=== PATIENT | male | born 1985 | race African-American/Black ===

== ENCOUNTER 2018-03-13 16:25 | Emergency (ER) | payer SELFPAY ==
[2018-03-13] MEDS ORDERED: Dexamethasone 4 mg/ml Vial ONE (17:18)
== END 2018-03-13 17:11 | disposition home or self-care (01) ==
LOC: ERS 16:25
DX: J02.0 Streptococcal pharyngitis (principal); I10 Essential (primary) hypertension
CPT/HCPCS: 87430; 99283; J1100

== ENCOUNTER 2018-06-26 11:55 | Emergency (ER) | payer SELFPAY | END 2018-06-26 13:09 | disposition home or self-care (01) | LOC: ERS 11:55 | DX: R20.2 Paresthesia of skin (principal); M54.12 Radiculopathy, cervical region; I10 Essential (primary) hypertension; F31.9 Bipolar disorder, unspecified; F41.9 Anxiety disorder, unspecified; Z79.899 Other long term (current) drug therapy | CPT/HCPCS: 99283 ==

== ENCOUNTER 2020-01-20 21:09 | Emergency (ER) | payer MEDICARE, MEDICAID ==
[2020-01-20] MEDS ORDERED: Adacel (T-DAP) 0.5 ML SYRINGE ONE (21:16)
[2020-01-20] MEDS ORDERED: Lidocaine 1% w/Epinephrine 1:100K 20 ML VIAL ONE (21:16)
--- NOTE | 2020-01-20 21:37 | RAD ---
EXAM: 2 views of the left forearm HISTORY: Forearm laceration COMPARISON: None FINDINGS: There is no evidence of acute fracture or dislocation. Mild soft tissue swelling is seen al klarissa the volar aspect of the wrist. No degenerative changes are seen in the wrist or elbow. No radiopaque foreign body is seen. IMPRESSION: No evidence of acute osseous abnormality.
[2020-01-20] MEDS ORDERED: Bacitracin 1 PK ONE (22:00)
[2020-01-20] MEDS ORDERED: Ibuprofen 800 MG TAB ONE (22:09)
== END 2020-01-20 22:13 | disposition home or self-care (01) ==
LOC: ERS 21:09
DX: S51.812A Laceration without foreign body of left forearm, initial encounter (principal); S11.91XA Laceration without foreign body of unspecified part of neck, initial encounter; I10 Essential (primary) hypertension; F31.9 Bipolar disorder, unspecified; F41.9 Anxiety disorder, unspecified; Z79.899 Other long term (current) drug therapy; X99.1XXA Assault by knife, initial encounter
CPT/HCPCS: 12001; 90471; 90715

== ENCOUNTER 2023-01-17 21:43 | Inpatient (IN) | payer OTHER, MEDICAID ==
[2023-01-17] MEDS ORDERED: Rocuronium Bromide 10 MG/ML (10ML VIAL) ONE (21:57)
[2023-01-17] MEDS ORDERED: Propofol 1,000 MG/100 ML VIAL IV ONE (22:09)
[2023-01-17 22:16] LABS: #Basophils 0.1 thou/uL (0.0-0.2); #Eosinphils 0.6 thou/uL (0.0-0.7); #Monocytes 0.7 thou/uL (0.11-0.59); %Basophils 0.6 % (0.0-1.0); %Eosinophils 5.6 % (0.0-10.0); %Lymphocytes 36.7 % (21.0-51.0); %Monocytes 6.8 % (0.0-10.0); %Neutrophils 50.2 % (42.0-75.0); Hemoglobin 12.6 g/dL (14.0-18.0); Mean Corpuscular HGB CONC 33.5 g/dL (32.0-36.0); Mean Corpuscular Hemoglobin 30.3 pg (27.0-31.0); Mean Corpuscular Volume 90.4 fl (78.0-98.0); Mean Platelet Volume 10.5 fL (7.4-10.4); Platelet Count 305 10x3/uL (130-400); RBC Distribution Width 13.4 % (11.5-14.5); Red Blood Cell (RBC) Count 4.16 mill/uL (4.70-6.10); White Blood Cell (WBC) Count 9.9 10x3/uL (4.8-10.8)
[2023-01-17 22:39] LABS: Actual Bicarbonate (HCO3a) 23.4 mEq/L (22-28); Analyzer IN Cardio ER; Base Excess (BEa) -2.2 mEq/L (-2.0 to +3.0); Calcium, Ionized (arterial) 1.15 mmol/L (1.12-1.30); Hematocrit-ABG 37 % (42.0-52.0); Hemoglobin (Hb) 12.6 g/dL (14.0-18.0); O2 Tension (PaO2), arterial 331.8 mmHg (80.0-100.0); Potassium - ABG Lab 3.42 mmol/L (3.70-5.30); pH, Arterial 7.353 (7.35-7.45)
[2023-01-17 22:42] LABS: Puncture Site RRA
[2023-01-17 22:44] LABS: Acetaminophen Less than 10 mcg/mL (10.0-30.0); Alcohol Less than 10.0 mg/dL (Less than 10); Lipase 27 U/L (8-78); Magnesium 1.8 mg/dL (1.6-2.6); Salicylate Less than 8.0 mg/dL (15.0-30.0)
[2023-01-17 23:22] LABS: Amphetamine Not Detected (NotDetected); Barbiturates Screen Not Detected (NotDetected); Benzodiazepine Screen Detected (NotDetected); Cocaine Metabolite Screen Detected (NotDetected); Methadone Not Detected (NotDetected); Methamphetamine Not Detected (NotDetected); Opiate Screen Detected (NotDetected); Oxycodone Screen Not Detected (NotDetected); Phencyclidine (PCP) Not Detected (NotDetected); THC/Cannabinoid Screen Not Detected (NotDetected); Tricyclic Screen Not Detected (NotDetected)
[2023-01-17 23:29] LABS: Bacteria/HPF None Seen HPF (None Seen); Bilirubin Negative (Negative); Blood, Urine Negative (Negative); CAUTI Indications for Culture Alt mental st,lethar; Clarity Clear (Clear); Glucose, Urine (Dipstick) Normal (Negative); Ketone, Urine Negative (Negative); Leukocyte Negative Leu/uL (Negative); Nitrite Negative (Negative); Protein, Urine (Dipstick) 20 mg/dL (Neg-Trace); RBC/HPF 0-3 HPF (0-3); Specific Gravity, Urine 1.024 (1.002-1.036); Squamous Epithelial None Seen HPF (0-3); Urobilinogen Normal mg/dL (Less than 2); WBC/HPF 0-3 HPF (0-3); pH, Urine 5.5 (5.0-9.0)
[2023-01-17 23:38] LABS: Urine Culture Reflex No No
[2023-01-17] MEDS ORDERED: Ventilator Sedation Protocol 1 EACH FS SCH (23:45)
[2023-01-17] MEDS ORDERED: Ondansetron PF 4 MG/2 ML Vial IVP PRN (23:50)
[2023-01-17] MEDS ORDERED: Acetaminophen 325 MG TAB PO PRN (23:50)
[2023-01-17] MEDS ORDERED: Acetaminophen 650 MG Suppository PR PRN (23:50)
[2023-01-17] MEDS ORDERED: Ondansetron ODT 4 MG TAB PO PRN (23:50)
[2023-01-18] MEDS ORDERED: Morphine 2 MG/ML VIAL SLOW IVP PRN (00:15)
[2023-01-18] MEDS ORDERED: DISCONTINUE PREVIOUS NARCOTIC PAIN MEDICATIONS AND BENZODIAZEPINES FS SCH (00:15)
[2023-01-18] MEDS ORDERED: Fentanyl CADD 100 ML IV SCH (00:15)
[2023-01-18] MEDS ORDERED: Fentanyl BOLUS 250 ML IVPB PRN (00:15)
[2023-01-18] MEDS ORDERED: Lorazepam 2 MG/ML VIAL SLOW IVP PRN (00:15)
[2023-01-18] MEDS ORDERED: Propofol BOLUS 1,000 MG/100 ML VIAL IV PRN (00:15)
[2023-01-18] MEDS: Propofol 1,000 MG/100 ML VIAL IV PRN ×3 (01:55→08:04)
[2023-01-18 01:58] LABS: ALT (SGPT) 15 U/L (8-55); AST (SGOT) 11 U/L (5-34); Albumin 2.4 g/dL (3.5-5.0); Alkaline Phosphatase 43 U/L (40-110); Anion Gap 12 mmol/L (10-20); BUN (Urea Nitrogen) 11 mg/dL (8.9-20.6); Bilirubin, Total 0.2 mg/dL (0.2-1.2); Calc. Creatinine Clearance 0 mL/min (70-130); Carbon Dioxide 17 mmol/L (22-29); Chloride 118 mmol/L (98-107); Estimated GFR 130; Globulin 2.1 g/dL (2.4-3.5); Glucose 75 mg/dL (70-105); Protein, Total 4.5 g/dL (6.0-8.3); Sodium 144 mmol/L (136-145)
[2023-01-18 02:00] LABS: Potassium 2.5 mmol/L (3.5-5.1)
[2023-01-18 02:12] VITALS: BP 125/75
[2023-01-18 02:27] LABS: Acetaminophen Less than 10 mcg/mL (10.0-30.0)
[2023-01-18] MEDS ORDERED: Electrolyte Replacement Protocol 1 EACH FS PRN (02:40)
[2023-01-18] MEDS: Potassium Chloride 20 MEQ in Premix Bag 1 BAG IVPB SCH ×4 (03:10→12:20)
[2023-01-18 03:22] VITALS: BMI 41.8
[2023-01-18 04:32] LABS: #Eosinphils 0.2 thou/uL (0.0-0.7); #Monocytes 0.7 thou/uL (0.11-0.59); #Neutrophils 4.7 thou/uL (1.40-6.50); %Basophils 0.4 % (0.0-1.0); %Eosinophils 2.8 % (0.0-10.0); %Lymphocytes 28.8 % (21.0-51.0); %Monocytes 8.8 % (0.0-10.0); %Neutrophils 59.1 % (42.0-75.0); Hemoglobin 12.6 g/dL (14.0-18.0); Mean Corpuscular HGB CONC 33.5 g/dL (32.0-36.0); Mean Corpuscular Hemoglobin 29.9 pg (27.0-31.0); Mean Corpuscular Volume 89.3 fl (78.0-98.0); Mean Platelet Volume 10.4 fL (7.4-10.4); Platelet Count 299 10x3/uL (130-400); RBC Distribution Width 13.3 % (11.5-14.5); Red Blood Cell (RBC) Count 4.21 mill/uL (4.70-6.10); White Blood Cell (WBC) Count 7.9 10x3/uL (4.8-10.8)
[2023-01-18 05:08] LABS: Anion Gap 14 mmol/L (10-20); BUN (Urea Nitrogen) 12 mg/dL (8.9-20.6); Calc. Creatinine Clearance 233 mL/min (70-130); Calcium 9.2 mg/dL (7.8-10.44); Carbon Dioxide 23 mmol/L (22-29); Chloride 107 mmol/L (98-107); Estimated GFR 116; Glucose 102 mg/dL (70-105); Magnesium 1.8 mg/dL (1.6-2.6); Potassium 5.4 mmol/L (3.5-5.1); Sodium 139 mmol/L (136-145)
[2023-01-18] MEDS ORDERED: Calcium Gluc 4.6 MEQ/10 ML (100 MG/ML) SLOW IVP SCH (05:12)
[2023-01-18] MEDS ORDERED: Magnesium 2 GM/50 ML(in water) 2 GM in Premix Bag 1 BAG IVPB SCH (05:45)
[2023-01-18] MEDS ORDERED: hydrALAZINE 20 MG/ML VIAL SLOW IVP PRN (09:18)
[2023-01-18 12:27] VITALS: TEMP 98.2
[2023-01-19] MEDS ORDERED: Sertraline 100 MG TAB PO SCH (09:00)
== END 2023-01-18 15:34 | disposition home or self-care (01) | DRG 917 ==
LOC: ERS 21:43 → CCU 23:18
PROVIDERS: ADMIT Student in an Organized Health Care Education/Training Program; ATTEND Student in an Organized Health Care Education/Training Program
PROC: 4A033R1 Measurement of Arterial Saturation, Peripheral, Percutaneous Approach (ICD-10-PCS; principal; 2023-01-17)
PROC: 0BH17EZ Insertion of Endotracheal Airway into Trachea, Via Natural or Artificial Opening (ICD-10-PCS; 2023-01-17)
PROC: 5A1935Z Respiratory Ventilation, Less than 24 Consecutive Hours (ICD-10-PCS; 2023-01-17)
DX: T42.4X1A Poisoning by benzodiazepines, accidental (unintentional), initial encounter (principal); G92.8 Other toxic encephalopathy; J96.01 Acute respiratory failure with hypoxia; F19.10 Other psychoactive substance abuse, uncomplicated; I10 Essential (primary) hypertension; F31.9 Bipolar disorder, unspecified; D64.9 Anemia, unspecified; Z79.899 Other long term (current) drug therapy; F14.10 Cocaine abuse, uncomplicated; F11.10 Opioid abuse, uncomplicated; E87.6 Hypokalemia; Z78.1 Physical restraint status
CPT/HCPCS: 36415; 36416; 36600; 70450; 71045; 80048; 80143; 80306; 80307; 81001; 82306; 82805; 83690; 83735; 83880; 84443; 84484; 85025; 93005; 94003; J0612; J1650; J2060; J2704; J3475; J3480

== ENCOUNTER 2023-09-01 14:54 | Emergency (ER) | payer OTHER, MEDICAID, MEDICARE ==
[2023-09-01] MEDS ORDERED: Ketorolac Tromethamine 30 MG (1 mL) VIAL ONE (15:45)
== END 2023-09-01 15:54 | disposition home or self-care (01) ==
LOC: ERS 14:54
DX: K04.7 Periapical abscess without sinus (principal); K03.81 Cracked tooth; I10 Essential (primary) hypertension
CPT/HCPCS: 96372; 99282; J1885